=== PATIENT | male | born 1940 ===

== ENCOUNTER → 2018-12-24 05:00 | Outpatient (REF) | payer MEDICARE, SELFPAY ==
[2018-12-24 07:41] LABS: Hematocrit 21.3 % (40-54); Mean Corp Hgb Conc 32.9 g/dL (32-36); Mean Corpuscular Hgb 29.8 pg (27.0-32.0); Mean Corpuscular Volume 90.6 fL (80-94); Mean Platelet Vol. 9.6 fl (6.2-12.0); Platelet Count 123 K/mm3 (150-450); RBC Distribution Width CV 13.2 % (11.6-14.6); RBC Distribution Width SD 43.1 fl (35.1-43.9); Red Blood Count 2.35 M/mm3 (4.6-6.2); White Blood Count 5.1 K/mm3 (4.4-11.0)
[2018-12-24 07:59] LABS: Protein, Urine (Random) 445.6 mg/dL (<11.9); Protein:Creat Ratio 3776 mg/g CRE (0-200)
[2018-12-24 08:06] LABS: Albumin, Serum 2.4 g/dL (3.2-5.0); BUN 59 mg/dL (7-18); BUN/Creat Ratio 28.4 RATIO (10-20); Calcium,Total 7.8 mg/dL (8.5-10.1); Chloride 108 mmol/L (98-107); Creatinine, Serum 2.08 mg/dL (0.70-1.30); EST Glomerular Filtration Rate 33 mL/min (>60); Est Glom Filt Rate - Afr Amer 40 mL/min (>60); Glucose 85 mg/dL (74-106); Phosphorus 2.7 mg/dL (2.5-4.9); Potassium 2.9 mmol/L (3.5-5.1); Sodium Level 147 mmol/L (136-145)
[2018-12-24 08:08] LABS: Color, Urine Yellow (Yellow); Glucose, Dipstick Normal (Normal); Ketone-Dipstick 5 mg/dl (Negative); Leukocyte Esterase-Dipstick 500 /ul (Negative); Nitrite-Dipstick Negative (Negative); Occult Blood-Urine 250 /ul (Negative); Protein-Dipstick 500 mg/dl (Negative); Urine Bilirubin Dipstick Negative (Negative); Urine Clarity Sl. Cloudy (Clear); Urine Urobilinogen Normal (Normal); Urine pH 6.5 (5.0 - 8.0)
[2018-12-24 08:29] LABS: PTHIN 92.4 pg/mL (18.4-80.1); Vitamin D,25 Hydroxy 41.8 ng/mL (29.95-100.01)
== END ==
LOC: OLS.ACW300 05:00
PROVIDERS: Visit Provider Family Medicine
DX: S32.492D Other specified fracture of left acetabulum, subsequent encounter for fracture with routine healing (principal); M62.81 Muscle weakness (generalized); R27.9 Unspecified lack of coordination; I25.10 Atherosclerotic heart disease of native coronary artery without angina pectoris
CPT/HCPCS: 36415; 80069; 81002; 82306; 82570; 83970; 84156; 85027